=== PATIENT | male | born 1960 | race Caucasian/White ===

== ENCOUNTER 2021-05-11 07:41 | Emergency (ER) | payer SELFPAY ==
[~2021-05-11] VITALS: Ht 157.5 cm; Wt 55.0 kg
[2021-05-11 07:53] VITALS: BP 164/96
[2021-05-11] MEDS ORDERED: LORAZEPAM 2MG/ML CPJ IV ONE (08:15)
[2021-05-11 08:29] LABS: CHLORIDE 105 mEq/L (98-107)
[2021-05-11 08:32] LABS: ETHANOL BLOOD < 10 mg/dL
[2021-05-11 08:39] LABS: BASOPHILS % 0.2 % (0.0-2.0); EOSINOPHILS % 0.6 % (0.0-5.0); HEMATOCRIT. 43.8 % (42.0-52.0); HEMOGLOBIN. 14.7 g/dL (14.0-18.0); LYMPHOCYTES % 29.4 % (20.0-50.0); MEAN CORPUSCULAR VOLUME 86.6 fL (80.0-94.0); MEAN PLATELET VOLUME 7.6 fl (7.4-10.4); MONOCYTES % 9.2 % (2.0-8.0); NEUTROPHILS % 60.6 % (40.0-76.0); PLATELET 237 x1000/uL (130-400); RED BLOOD CELL COUNT 5.07 mill/uL (4.7-6.1); RED CELL DISTRIBUTION WIDTH 16.3 % (11.6-14.6)
== END 2021-05-11 08:59 | disposition left against medical advice (07) ==
LOC: EDBD 07:41 → ER 08:33
DX: R26.0 Ataxic gait (principal); F10.20 Alcohol dependence, uncomplicated; Y90.9 Presence of alcohol in blood, level not specified; R00.0 Tachycardia, unspecified
CPT/HCPCS: 36415; 80048; 80320; 85025; 93005; 99284; G0480